=== PATIENT | male | born 1965 | race Caucasian/White ===

== ENCOUNTER 2018-12-05 18:43 | Emergency (ER) | payer OTHER ==
[2018-12-05 19:14] LABS: Bilirubin Negative (Negative); Blood, Urine Moderate (Negative); Clarity Cloudy (Clear); Glucose, Urine (Dipstick) Negative (Negative); Leukocyte Small (Negative); Nitrite Negative (Negative); Protein, Urine (Dipstick) Negative (Neg-Trace); Urobilinogen 0.2 mg/dL (Less than 2)
[2018-12-05 19:17] LABS: Bacteria/HPF 1+ HPF (None Seen); Squamous Epithelial 0-3 HPF (0-3)
[2018-12-05] MEDS ORDERED: Cipro 250 MG TAB ONE (20:06)
== END 2018-12-05 20:09 | disposition home or self-care (01) ==
LOC: SCSER 18:43
DX: N41.0 Acute prostatitis (principal); Z71.6 Tobacco abuse counseling; F41.9 Anxiety disorder, unspecified; F17.210 Nicotine dependence, cigarettes, uncomplicated; I10 Essential (primary) hypertension; Z79.899 Other long term (current) drug therapy
CPT/HCPCS: 81003; 81015; 87077; 87086; 87186; 99406

== ENCOUNTER 2020-01-16 18:00 | Outpatient (CLI) | payer OTHER | END 2020-01-16 18:01 | disposition home or self-care (01) | LOC: SLEEPLAB 18:00 | PROVIDERS: ATTEND Family Medicine | DX: G47.33 Obstructive sleep apnea (adult) (pediatric) (principal); G47.00 Insomnia, unspecified; E66.9 Obesity, unspecified; I51.89 Other ill-defined heart diseases; I10 Essential (primary) hypertension; R53.83 Other fatigue; R06.83 Snoring; Z68.38 Body mass index [BMI] 38.0-38.9, adult | CPT/HCPCS: 95806 ==